=== PATIENT | male | born 1960 | race Caucasian/White ===

== ENCOUNTER 2017-04-09 19:19 | Emergency (ER) | payer MEDICAID ==
[~2017-04-09] VITALS: Ht 167.6 cm; Wt 95.0 kg
[2017-04-10] MEDS ORDERED: KETOROLAC 60MG/2ML VIAL IM ONE (00:15)
[2017-04-10 02:15] VITALS: BP 115/55
== END 2017-04-10 02:50 | disposition home or self-care (01) ==
LOC: ER 19:28
DX: S82.832A Other fracture of upper and lower end of left fibula, initial encounter for closed fracture (principal); R05 Cough; F10.129 Alcohol abuse with intoxication, unspecified; Y90.9 Presence of alcohol in blood, level not specified; Z87.01 Personal history of pneumonia (recurrent); W18.39XA Other fall on same level, initial encounter; Y93.89 Activity, other specified; Y92.89 Other specified places as the place of occurrence of the external cause; Y99.8 Other external cause status
CPT/HCPCS: 29515; 70450; 71020; 73610; 96372; 99284; J1885; Z7610